=== PATIENT | male | born 1960 ===

== ENCOUNTER 2020-09-02 22:47 | Outpatient (CLI) | payer SELFPAY | END 2020-09-02 22:48 | disposition EMS.NT | LOC: EMS 22:47 | DX: F41.9 Anxiety disorder, unspecified (principal) ==

== ENCOUNTER 2021-07-14 06:57 | Outpatient (CLI) | payer SELFPAY | END 2021-07-14 06:58 | disposition left against medical advice (07) | LOC: EMS 06:57 | DX: R07.9 Chest pain, unspecified (principal); R14.0 Abdominal distension (gaseous); R00.0 Tachycardia, unspecified; R03.0 Elevated blood-pressure reading, without diagnosis of hypertension ==